=== PATIENT | male | born 1955 | race African-American/Black ===

== ENCOUNTER 2019-06-07 09:12 | Emergency (ER) | payer SELFPAY ==
--- NOTE | 2019-06-07 10:02 | RAD ---
XR Knee Rt 4 View STANDARD History: Right lower extremity pain and swelling Comparison: Radiograph 2016 Findings: Mild suprapatellar soft tissue swelling. Small joint effusion. No acute fracture or malalig nment. Impression: Suprapatellar soft tissue swelling may be sequelae bursitis or cellulitis. No acute osseo us abnormality.
[2019-06-07] MEDS ORDERED: HYDROcodone/Acetaminophen 5/325 mg Tablet ONE (10:23)
--- NOTE | 2019-06-07 11:53 | ULT ---
ULTRASOUND WITH DOPPLER DUPLEX VENOUS LOWER EXTREMITY RIGHT: HISTORY: A 64-year-old male with right lower extremity pain and edema. TECHNIQUE: Color flow Doppler, spectral waveform analysis of pulsed Doppler, and michel-scale imaging with jackie fred and augmentation were used to evaluate the right common femoral, femoral, popliteal, posterior t ibial and superficial femoral veins, and the proximal portions of the profunda femoral and greater sa phenous veins. FINDINGS: There is normal compressibility, demonstration of blood flow by color Doppler and pulsed Doppler, and response to augmentation, in all interrogated veins. There is edema in the soft tissues superficial to the right posterior tibial vein. IMPRESSION: 1. No deep vein thrombosis in the right lower extremity. 2. Soft tissue edema at the right ankle. jnr POS: [facility]
[2019-06-07] MEDS ORDERED: Acetaminophen 500 MG TAB ONE (13:07)
== END 2019-06-07 13:05 | disposition home or self-care (01) ==
LOC: ERS 09:12
DX: M25.561 Pain in right knee (principal)

== ENCOUNTER 2019-12-10 09:05 | Emergency (ER) | payer SELFPAY ==
[2019-12-10 09:31] LABS: Bilirubin Negative (Negative); Blood, Urine Negative (Negative); Clarity Clear (Clear); Glucose, Urine (Dipstick) Normal (Negative); Leukocyte Negative Leu/uL (Negative); Nitrite Negative (Negative); Protein, Urine (Dipstick) Negative (Neg-Trace); Urobilinogen Normal mg/dL (Less than 2)
[2019-12-10 09:33] LABS: #Lymphocytes 1.3 thou/uL (1.20-3.40); #Monocytes 0.3 thou/uL (0.11-0.59); #Neutrophils 2.2 thou/uL (1.40-6.50); %Basophils 0.8 % (0.0-1.0); %Lymphocytes 33.4 % (21.0-51.0); %Monocytes 7.5 % (0.0-10.0); %Neutrophils 57.3 % (42.0-75.0); Hemoglobin 15.4 g/dL (14.0-18.0); Mean Corpuscular Hemoglobin 33.1 pg (27.0-31.0); Mean Corpuscular Volume 97.2 fL (78.0-98.0); Mean Platelet Volume 6.6 fL (7.4-10.4); Platelet Count 213 thou/uL (130-400); RBC Distribution Width 11.9 % (11.5-14.5); Red Blood Cell (RBC) Count 4.64 mill/uL (4.70-6.10); White Blood Cell (WBC) Count 3.8 thou/uL (4.8-10.8)
[2019-12-10] MEDS ORDERED: Aspirin Chewable 81 MG TAB ONE (09:48)
[2019-12-10 09:53] LABS: ALT (SGPT) 21 U/L (8-55); AST (SGOT) 20 U/L (5-34); Albumin 3.8 g/dL (3.4-4.8); Alkaline Phosphatase 59 U/L (40-110); Anion Gap 9 mmol/L (10-20); BUN (Urea Nitrogen) 14 mg/dL (8.4-25.7); Bilirubin, Total 0.7 mg/dL (0.2-1.2); CK (CPK) 117 U/L (30-200); Calc. Creatinine Clearance 0 mL/min (70-130); Calcium 8.9 mg/dL (7.8-10.44); Carbon Dioxide 28 mmol/L (23-31); Chloride 108 mmol/L (98-107); Estimated GFR-MDRD 74; Globulin 2.1 g/dL (2.4-3.5); Glucose 106 mg/dL (80-115); Potassium 4.4 mmol/L (3.5-5.1); Protein, Total 5.9 g/dL (5.8-8.1); Sodium 141 mmol/L (136-145)
--- NOTE | 2019-12-10 10:13 | RAD ---
PORTABLE CHEST: Date: 12-10-2019 Time: 9:05 a.m. History: Chest pain, syncope. FINDINGS: Comparison is made with exam of 11-08-16. The heart size is normal. The aorta is tortuous. The lungs are well expanded without lobar consolidat ion, pneumothoraces, or pleural effusions. IMPRESSION: No radiographic evidence of acute cardiopulmonary process. POS: [facility]
== END 2019-12-10 11:56 | disposition home or self-care (01) ==
LOC: ERS 09:05
DX: R07.9 Chest pain, unspecified (principal)
CPT/HCPCS: 36415; 71045; 80053; 81003; 82550; 84484; 85025; 85379; 93005

== ENCOUNTER 2020-07-03 09:56 | Emergency (ER) | payer OTHER, SELFPAY ==
[2020-07-04 11:44] LABS: SARS-CoV-2 MS2 Positive; SARS-CoV-2 N Gene Negative; SARS-CoV-2 S Gene Negative; SARS-CoV-2 by NAA Not Detected (NotDetected); SARS-CoV-2 orf1ab Negative
== END 2020-07-03 10:11 | disposition home or self-care (01) ==
LOC: ERS 09:56
DX: Z20.828 Contact with and (suspected) exposure to other viral communicable diseases (principal)
CPT/HCPCS: 87635; 99283; U0003

== ENCOUNTER 2020-10-21 11:51 | Emergency (ER) | payer SELFPAY ==
[2020-10-22 02:05] LABS: SARS-CoV-2 by NAA Indeterminate (NotDetected)
== END 2020-10-21 12:09 | disposition home or self-care (01) ==
LOC: ERS 11:51
DX: Z20.828 Contact with and (suspected) exposure to other viral communicable diseases (principal)
CPT/HCPCS: 87635; 99283; U0003

== ENCOUNTER 2020-11-08 10:35 | Emergency (ER) | payer SELFPAY | END 2020-11-08 11:11 | disposition home or self-care (01) | LOC: ERS 10:35 | DX: R42 Dizziness and giddiness (principal) | CPT/HCPCS: 93005 ==

== ENCOUNTER 2021-10-03 13:26 | Emergency (ER) | payer SELFPAY, OTHER ==
[2021-10-03 14:21] LABS: #Eosinphils 0.1 thou/uL (0.0-0.7); #Lymphocytes 1.4 thou/uL (1.20-3.40); #Monocytes 0.3 thou/uL (0.11-0.59); #Neutrophils 2.1 thou/uL (1.40-6.50); %Basophils 0.9 % (0.0-1.0); %Eosinophils 1.9 % (0.0-10.0); %Lymphocytes 35.7 % (21.0-51.0); %Monocytes 8.5 % (0.0-10.0); Hemoglobin 14.3 g/dL (14.0-18.0); Mean Corpuscular HGB CONC 32.7 g/dL (32.0-36.0); Mean Corpuscular Hemoglobin 32.6 pg (27.0-31.0); Mean Corpuscular Volume 99.5 fL (78.0-98.0); Mean Platelet Volume 6.3 fL (7.4-10.4); Platelet Count 233 thou/uL (130-400); White Blood Cell (WBC) Count 3.9 thou/uL (4.8-10.8)
[2021-10-03 14:41] LABS: ALT (SGPT) 20 U/L (8-55); AST (SGOT) 22 U/L (5-34); Albumin 3.9 g/dL (3.4-4.8); Alkaline Phosphatase 61 U/L (40-110); Anion Gap 11 mmol/L (10-20); BUN (Urea Nitrogen) 13 mg/dL (8.4-25.7); Bilirubin, Total 0.5 mg/dL (0.2-1.2); Calc. Creatinine Clearance 0 mL/min (70-130); Calcium 9.2 mg/dL (7.8-10.44); Carbon Dioxide 26 mmol/L (23-31); Chloride 106 mmol/L (98-107); Globulin 2.7 g/dL (2.4-3.5); Glucose 84 mg/dL (80-115); Potassium 4.1 mmol/L (3.5-5.1); Protein, Total 6.6 g/dL (5.8-8.1); Sodium 139 mmol/L (136-145)
== END 2021-10-03 15:52 | disposition home or self-care (01) ==
LOC: ERS 13:26
DX: R42 Dizziness and giddiness (principal)
CPT/HCPCS: 36415; 80053; 84484; 85025; 93005

== ENCOUNTER 2021-12-05 12:21 | Emergency (ER) | payer SELFPAY, OTHER ==
[2021-12-05 23:04] LABS: SARS-CoV-2 PCR by NAA Not Detected (NotDetected)
== END 2021-12-05 12:41 | disposition home or self-care (01) ==
LOC: ERS 12:21
DX: R50.9 Fever, unspecified (principal); Z20.822 Contact with and (suspected) exposure to COVID-19
CPT/HCPCS: 99283; U0003; U0005

== ENCOUNTER 2024-05-12 11:23 | Emergency (ER) | payer SELFPAY | END 2024-05-12 12:01 | disposition left against medical advice (07) | LOC: ERS 11:23 | DX: Z53.21 Procedure and treatment not carried out due to patient leaving prior to being seen by health care provider (principal) ==

== ENCOUNTER 2024-09-04 10:05 | Emergency (ER) | payer SELFPAY ==
[2024-09-04 10:49] LABS: #Basophils Less than 0.03 10x3/uL (0.0-0.2); #Eosinophils Less than 0.03 10x3/uL (0.0-0.7); %Basophils 0.3 % (0.0-1.0); %Eosinophils 0.6 % (0.0-10.0); %Lymphocytes 23.3 % (21.0-51.0); %Monocytes 11.3 % (0.0-10.0); %Neutrophils 64.5 % (42.0-75.0); Hemoglobin 14.8 g/dL (14.0-18.0); Mean Corpuscular HGB CONC 34.4 g/dL (32.0-36.0); Mean Corpuscular Hemoglobin 32.4 pg (27.0-31.0); Mean Corpuscular Volume 94.1 fL (78.0-98.0); Mean Platelet Volume 8.7 fL (7.4-10.4); Platelet Count 233 10x3/uL (130-400); RBC Distribution Width 12.1 % (11.5-14.5); Red Blood Cell (RBC) Count 4.57 mill/uL (4.70-6.10)
[2024-09-04 11:09] LABS: ALT (SGPT) 25 U/L (8-55); AST (SGOT) 26 U/L (5-34); Albumin 3.9 g/dL (3.4-4.8); Alkaline Phosphatase 63 U/L (40-110); Anion Gap 12 mmol/L (10-20); BUN (Urea Nitrogen) 11 mg/dL (8.4-25.7); Bilirubin, Total 0.6 mg/dL (0.2-1.2); Calc. Creatinine Clearance 0 mL/min (70-130); Calcium 8.9 mg/dL (7.8-10.44); Carbon Dioxide 22 mmol/L (23-31); Chloride 104 mmol/L (98-107); Estimated GFR 99; Glucose 104 mg/dL (80-115); Lipase 15 U/L (8-78); Potassium 4.1 mmol/L (3.5-5.1); Protein, Total 6.9 g/dL (5.8-8.1); Sodium 134 mmol/L (136-145)
[2024-09-04 11:14] LABS: Troponin I Less than 0.010 ng/mL (< 0.028)
[2024-09-04 11:24] LABS: Bacteria/HPF None Seen HPF (None Seen); Bilirubin Negative (Negative); Blood, Urine Negative (Negative); CAUTI Indications for Culture Dysuria,urgency,freq; Clarity Clear (Clear); Glucose, Urine (Dipstick) Normal (Negative); Ketone, Urine 10 mg/dL (Negative); Leukocyte 75 Leu/uL (Negative); Nitrite Negative (Negative); Protein, Urine (Dipstick) Negative (Neg-Trace); RBC/HPF 0-3 HPF (0-3); Specific Gravity, Urine 1.001 (1.002-1.036); Squamous Epithelial None Seen HPF (0-3); Urobilinogen Normal mg/dL (Less than 2); pH, Urine 6.5 (5.0-9.0)
[2024-09-04 11:26] LABS: Urine Culture Reflex No No
== END 2024-09-04 14:27 | disposition home or self-care (01) ==
LOC: ERS 10:05
DX: R42 Dizziness and giddiness (principal); R29.700 NIHSS score 0
CPT/HCPCS: 36415; 71045; 80053; 81001; 83690; 84484; 85025; 93005